=== PATIENT | male | born 1975 | race Caucasian/White ===

== ENCOUNTER 2017-07-06 11:46 | Emergency (ER) | payer OTHER ==
[2017-07-06] MEDS: IBUPROFEN 800 MG TAB PO (13:36)
[2017-07-06] MEDS: FAMOTIDINE 20 MG TAB PO (13:36)
== END 2017-07-06 13:48 | disposition home or self-care (01) ==
LOC: FTE 13:48
DX: J02.9 Acute pharyngitis, unspecified (principal)
CPT/HCPCS: 99283; Z7502